=== PATIENT | male | born 1940 | race Caucasian/White ===

== ENCOUNTER 2018-10-19 15:29 | Outpatient (CLI) | payer MEDICARE, OTHER, BC, SELFPAY ==
--- NOTE | 2018-10-19 15:37 | DI.RAD_ITS ---
SYMPTOM/DIAGNOSIS: SOB, COUGH PA AND LATERAL CHEST: There are no prior comparison exams. The heart size is normal. The aorta is mildly tortuous. There are mild underling fibrotic changes. No infiltrate, effusion or pulmonary edema is seen. IMPRESSION: No acute abnormality.
== END 2018-10-19 15:49 ==
PROVIDERS: Visit Provider General Practice
DX: R05 Cough (principal); R06.02 Shortness of breath
CPT/HCPCS: 71046

== ENCOUNTER 2019-07-19 15:55 | Emergency (ER) | payer MEDICARE, OTHER, BC, SELFPAY ==
[2019-07-19] VITALS (29 sets, daily range): BP systolic 129–156; BP diastolic 75–87; PULSE 56–92; RESP 0–18; TEMP 36.8; O2SAT 93–99
--- NOTE | 2019-07-19 15:59 | W.ED.GENAD ---
Discharge Plan Disposition Patient Disposition: HOME Condition: Good Discharge Details Chief Complaint: Chest Pain Clinical Impression: Atypical chest pain Primary Care Provider: Unknown,Unknown ED Provider: Aishwarya Smith Home Meds and New Rx's Prescriptions: Continued aspirin 81 mg Tablet,Chewable 81 mg PO DAILY RF: 0 metoprolol succinate 25 mg Tablet Extended Release 24 Hr 25 mg PO DAILY RF: 0 Discharge Instructions Instructions: Chest Pain (ED) Additional Instructions: Encourage hydration. Please keep your coming appoint with cardiology. Please follow their recommendations regarding medications in your postoperative care. If you develop fever/chills, shortness of breath, current chest pain or other new/worsening symptoms please seek care urgently once again. Medical Decision Making <DONALD Moralez - Last Filed: 07/20/19 00:23> Patient is a 79 year old male with hx of HTN, mitral valve repair in April,. Has been doing well, active and skiing frequently. Had one episode of chest discomfort after coughing 3AM yesterday followed by bubbling sensation. He is not able to describe this further or clarify this sensation. [place]. No leg pain. No SOB. Has been active since episode with no recurrence. Came in at the advisement of his income tax preparer requesting a cxr. Currently asymptomatic. On exam, he is resting comfortably. No pain with palpation of the chest. No crepitus. No evidence of respiratory distress. No pedal edema. ECG reviewed by Dr. Ceballos. Patient in NSR with rate of 62. Inverted T waves in III and , he advised that this is fairly nondiagnostic, no previous for comparison. Labs reviewed, patient appears dry. He admits to limited water intake. Troponin <0.05. No other significant abnormality. Chest x-ray reviewed by radiologist: FINDINGS: Lungs: Few small bibasilar opacities. Pleural space: Unremarkable. No pleural effusion. No pneumothorax. Heart/Mediastinum: Interval cardiac instrumentation. Diaphragm: Abnormal contour of the right greater than left hemidiaphragm. Bones/joints: Unremarkable. IMPRESSION: 1. Few small bibasilar opacities consistent with atelectasis, aspiration, or infection. 2. Abnormal contour of the right greater than left hemidiaphragms. Consider further evaluation with CT if there is concern for diaphragmatic eventration/hernia.. Discussed these findings with the patient. In particular, we discussed the findings of the hemidiaphragm. However, I do not feel that these possible emergent diagnoses allow this is very unlikely as the patient does not have any pain in his abdomen, persistent pain in his chest, shortness of breath. No recent trauma. He has had multiple x-rays performed by his income tax preparer before. However, the patient does not receive care here and unable to have any comparison films. We will send him home with a disc. I am unclear on what the bubbling sensation was from. We did discuss possible etiologies such as gas, mucus disruption after coughing. I find no emergent etiology such as issues with his valve for ACS less likely. He has been very active since then with no recurrence of his symptoms. He has prompt follow-up with cardiology once he returns home. He was given return precautions. I did encourage hydration as he did appear to be dehydrated on his labs. All of his questions and concerns were addressed and he is in agreement this plan. <Maxwell Ceballos DO - Last Filed: 07/19/19 16:59> EKG 1606 Rate 62, sinus rhythm, intervals normal, no significant ST elevations or depressions, there is a single T wave inversion in V1 and secondary T wave inversion in lead III. No Q waves. HPI <DONALD Moralez - Last Filed: 07/20/19 00:23> General Mode of arrival: ambulatory. Date/Time Provider Initiated Documentation: 07/19/19 15:59. Limitations to Documentation: no limitations. Information obtained by: patient and RN notes reviewed. HPI Narrative: Patient is a pleasant 79 year old male presenting today with c/c of bubbling sensation that he experienced in his chest for 25 seconds 2 days ago. States that he awoke around 3AM with a cough. Reports that htis is typical for him. However, he experience a brief episode of discomfort on the left side of his chest that last less than one minute that then turned into a bubbling sensation. He denies feeling any crepitus or unusual sensations under his skin. Denies SOB. This was not exertional. Reports that this quickly subsided. Patient underwent a mitral valve repair in April. Has been doing well in the postoperative period. Reports that [place] in [place], here visiting and skiing. States that he emailed his income tax preparer who got back to him today and requested that he undergo a cxr. Patient states that he is on ASA, Metoprolol. States that he often has an irregular pulse but denies a fib, describes more as PVCs. Denies palpitations. Has been skiing since then and has not had any recurrence in his symptoms. No SOB or CP. States that his stamina has been at baseline. Related Data Home Medications Medication Instructions Recorded Confirmed aspirin 81 mg PO DAILY 07/19/19 07/19/19 metoprolol succinate 25 mg PO DAILY 07/19/19 07/19/19 Allergies Allergy/AdvReac Type Severity Reaction Status Date / Time No Known Allergies Allergy Unverified 07/19/19 16:24 Review of Systems <DONALD Moralez - Last Filed: 07/20/19 00:23> Constitutional Constitutional: Reports as per HPI, Denies chills, Denies fever(s), Denies headache(s), Denies lethargy and Denies poor appetite Eyes Eyes: Denies change in vision ENT Ears, Nose, Mouth, and Throat: Denies dizziness and Denies headache(s) Cardiovascular Cardiovascular: Reports as per HPI, Denies chest pain (none currently, none in past 36 hours), Denies chest pain at rest, Denies chest pain with activity, Denies diaphoresis, Denies syncope, Denies rapid heart rate, Denies pedal edema, Reports irregular heart rhythm, Denies leg edema, Denies lightheadedness, Denies radiating jaw, neck or arm pain, Denies palpitations, Denies dyspnea, Denies dyspnea on exertion, Denies orthopnea and Denies paroxysmal nocturnal dyspnea Respiratory Respiratory: Reports as per HPI, Denies chest congestion, Denies cough, Denies pain on inspiration, Denies pain with cough, Denies dyspnea, Denies dyspnea on exertion and Denies wheezing Gastrointestinal Gastrointestinal: Reports as per HPI, Denies abdominal pain, Denies diarrhea, Denies nausea and Denies vomiting Genitourinary Genitourinary: Denies system reviewed and no additional complaints, except as docu (denies change in urinary habits) Musculoskeletal Musculoskeletal: Reports as per HPI and Denies back pain Integumentary/Breasts Skin/Breast: Reports as per HPI and Denies rash Neurologic Neurologic: Reports as per HPI, Denies dizziness, Denies syncope and Denies headache(s) Endocrine Endocrine: Denies palpitations Allergic/Immunologic Allergic/Immunologic: Denies wheezing PFSH <DONALD Moralez - Last Filed: 07/20/19 00:23> Social History Smoking/Tobacco Use Status: Never Drug use: Never Do you feel safe at home: Yes Do you feel safe in your relationship?: Yes Exam <DONALD Moralez - Last Filed: 07/20/19 00:23> Const General: cooperative, healthy appearing, comfortable, no acute distress and well developed Nutritional Appearance: average body habitus and well nourished Orientation: alert, awake and oriented x3 HENMT Head: normal to inspection Ears: hearing grossly normal bilaterally Mouth: moist mucous membranes Chest Chest: normal inspection of the chest, normal palpation of entire chest wall and no crepitus Resp Effort & Inspection: normal respiratory effort, able to speak in complete sentences and no respiratory distress Auscultation: clear to auscultation bilaterally, no rales, no rhonchi and no wheezes Cardio Rate: regular rate Rhythm: regular rhythm Heart Sounds: S1 normal and S2 normal GI Inspection: normal to inspection, no edema and non-distended Palpation: soft, no hepatosplenomegaly, not firm, no guarding, not rigid and nontender Auscultation: normal bowel sounds Back/Spine/Pelvis Back: no CVA tenderness Thoracic/Lumbar Spine: thoracic and lumbar spine normal to inspection Skin General skin exam: no rashes or lesions noted Trauma: no lacerations or abrasions Neuro General: alert, awake and oriented x3 Cognition: normal cognition Speech: speech normal Gait: normal gait Extrem General: normal to inspection, normal capillary refill, no pedal edema, no calf tenderness and normal gait Psych Appearance: grossly normal and well kempt Mental Status: mental status grossly normal Speech and Movement: speech and movement normal
[2019-07-19 16:39] LABS: Abs Immature Grans 0.01 k/cumm (0.0-0.09); Absolute Basophil Count 0.03 k/cumm (0.0-0.2); Absolute Eosinophil Count 0.27 k/cumm (0.0-0.7); Absolute Lymphocyte Count 2.92 k/cumm (1.2-3.4); Absolute Monocyte Count 0.64 k/cumm (0.11-0.7); Absolute Neutrophil Count 3.24 k/cumm (1.2-6.7); Basophils % 0.4; Eosinophils % 3.8; HCT 37.6 % (40.0-50.0); HGB 12.6 g/dL (13.5-17.5); Immature Grans % 0.1; Lymphocytes % 41.1; Mean Corp. HGB Concentration 33.5 g/dL (32.0-36.0); Mean Corpuscular Hemoglobin 30.3 pg (27.0-33.0); Mean Corpuscular Volume 90.4 fL (80-95); Mean Platelet Volume 10.4 fL (8.0-11.0); Neutrophils % 45.6; Platelet Count 212 x1000/uL (130-400); RBC 4.16 m/cumm (4.50-6.00); White Blood Cell Count 7.11 k/cumm (4.4-10.8)
[2019-07-19 16:53] LABS: PTT Activated 25.1 sec (21.0-31.4); Prothrombin Time 9.7 sec (9.3-11.0)
[2019-07-19 16:59] LABS: ALT 24 U/L (16-63); AST 20 U/L (15-37); Albumin 3.6 g/dL (3.4-5.0); Alkaline Phosphatase 63 U/L (46-116); Anion Gap 7.5 mmol/L (3-11); BUN 28 mg/dL (7-18); Bilirubin, Total 0.4 mg/dL (0.2-1.0); CO2 26.5 mmol/L (21.0-32.0); CREATININE 1.35 mg/dL (0.70-1.30); Chloride 107 mmol/L (98-107); Estimated GFR 50.85 (mL/min/1.73m2); Glucose 103 mg/dL (74-106); Magnesium 2.1 mg/dL (1.8-2.4); Potassium 4.4 mmol/L (3.5-5.1); Sodium 141 mmol/L (136-145); Total Protein 7.2 g/dL (6.4-8.2); Troponin I < 0.05 ng/Ml (<0.06)
--- NOTE | 2019-07-19 17:16 | DI.RAD_ITS ---
EXAM: XR CHEST 2V PA LATERAL INDICATION: had internal bubble sensation. COMPARISON: XR CHEST 2V PA LATERAL from 10/19/2018 TECHNIQUE: 2D digital imaging was performed. FINDINGS: Heart size is within normal limits. Since the prior examination there are findings of cardiac surger y. Linear infiltrates are seen in the lung bases. These may represent atelectasis, scarring or pneumo ramsey. No focal consolidating infiltrates are seen. No pleural effusion or pneumothorax is identified. Since the prior examination there is elevation of the right hemidiaphragm medially. Degenerative estrada ges are seen in the spine. IMPRESSION: 1. Bilateral basilar linear infiltrates. This may represent atelectasis, aspiration or infection. 2. New abnormal contour of the right hemidiaphragm. This may represent eventration or hernia. CT scan may be considered for further evaluation.
--- NOTE | 2019-07-19 18:03 | DI.VRAD_ITS ---
PROCEDURE INFORMATION: Exam: XR Chest, 2 Views Exam date and time: 07/19/2019 5:17 PM Age: 79 years old Clinical indication: Other: Had internal bubble sensation TECHNIQUE: Imaging protocol: XR of the chest Views: 2 views. COMPARISON: CR XR CHEST 2V PA LATERAL 10/19/2018 3:40 PM FINDINGS: Lungs: Few small bibasilar opacities. Pleural space: Unremarkable. No pleural effusion. No pneumothorax. Heart/Mediastinum: Interval cardiac instrumentation. Diaphragm: Abnormal contour of the right greater than left hemidiaphragm. Bones/joints: Unremarkable. IMPRESSION: 1. Few small bibasilar opacities consistent with atelectasis, aspiration, or infection. 2. Abnormal contour of the right greater than left hemidiaphragms. Consider further evaluation with CT if there is concern for diaphragmatic eventration/hernia.. Dictated and Authenticated by: Trino Callejas MD. Ordering:ROSI Neff MD
== END 2019-07-19 19:05 | disposition home or self-care (01) ==
PROVIDERS: Emergency Provider Physician Assistant
DX: R07.89 Other chest pain (principal); I10 Essential (primary) hypertension; Z95.2 Presence of prosthetic heart valve
CPT/HCPCS: 36415; 80053; 93005; 99285; 71046; 83735; 84484; 85025; 85610; 85730; 93010

== ENCOUNTER 2019-11-19 11:04 | Outpatient (CLI) | payer MEDICARE, OTHER, BC, SELFPAY ==
[2019-11-20 13:54] LABS: COVID-19 RT-PCR UVMMC Result Negative (Negative)
== END 2019-11-19 11:24 ==
PROVIDERS: Visit Provider Surgery
DX: Z11.59 Encounter for screening for other viral diseases (principal); Z01.818 Encounter for other preprocedural examination
CPT/HCPCS: 99202; 99213; U0003

== ENCOUNTER 2020-02-17 19:55 | Outpatient (REF) | payer MEDICARE, BC, OTHER, SELFPAY ==
[2020-02-17 20:53] LABS: BUN 19 mg/dL (7-18); CREATININE 1.48 mg/dL (0.70-1.30); Calcium 9.4 mg/dL (8.5-10.1); Chloride 105 mmol/L (98-107); Estimated GFR 45.62 (mL/min/1.73m2); Glucose 107 mg/dL (74-106); Potassium 4.7 mmol/L (3.5-5.1); Sodium 140 mmol/L (136-145)
== END 2020-02-17 20:15 ==
LOC: LBN 19:55
PROVIDERS: PCP Family Medicine; Visit Provider Family Medicine
DX: N18.9 Chronic kidney disease, unspecified (principal)
CPT/HCPCS: 80048

== ENCOUNTER 2020-11-23 05:28 | Outpatient (REF) | payer MEDICARE, BC, OTHER, SELFPAY | END 2020-11-23 05:29 | disposition home or self-care (01) | LOC: LBN 05:28 | PROVIDERS: PCP Family Medicine; Visit Provider Family Medicine | DX: L02.212 Cutaneous abscess of back [any part, except buttock and flank] (principal) | CPT/HCPCS: 87070; 87205 ==